=== PATIENT | male | born 1940 | race Two or more races ===

== ENCOUNTER 2023-04-19 08:42 | Inpatient (IN) | payer OTHER ==
[~2023-04-19] VITALS: Ht 170.2 cm; Wt 76.2 kg
[2023-04-20] MEDS ORDERED: CARVEDILOL25 M1 PO (08:49)
[2023-04-20] MEDS ORDERED: APRESOLINE 10MG10 MG PO (08:49)
[2023-04-20] MEDS ORDERED: PEPCID AC20 MG PO (08:50)
[2023-04-26] MEDS ORDERED: INTEGRA PLUS C1 EACH PO (06:39)
[2023-04-26] MEDS ORDERED: OXYC1TAB9 PO (06:39)
[2023-04-26] MEDS ORDERED: BACTRIM DS TAB1 EACH PO (06:39)
[2023-04-26] MEDS ORDERED: XARELTO10 MG PO (06:39)
== END 2023-04-26 14:08 | DRG 470 ==
LOC: SURH 04-24 07:00 → O/R 04-24 09:48 → SURH 04-24 14:45
PROVIDERS: ADMIT Orthopaedic Surgery Sports Medicine; ATTEND Orthopaedic Surgery Sports Medicine
PROC: 0SRD0J9 Replacement of Left Knee Joint with Synthetic Substitute, Cemented, Open Approach (ICD-10-PCS; principal; 2023-04-24 14:45)
DX: M17.12 Unilateral primary osteoarthritis, left knee (principal); I10 Essential (primary) hypertension